=== PATIENT | female | born 1975 | race Caucasian/White ===

== ENCOUNTER 2018-08-01 09:52 | Inpatient (IN) | payer OTHER ==
[~2018-08-01] VITALS: Ht 157.5 cm; Wt 53.5 kg
--- NOTE | ~2018-08-01 | PROC ---
[address] [address] PROCEDURE REPORT Name: SHAUNA LAST Room: [address] IN .R.#: [id number] Admission: 08/01/18 Attend Phys: Prasanna Castaneda Discharge: 08/04/18 Date of : 77 Report #: [id number] THIS REPORT FOR: //name// For GI report, please see the Provation report in Perceptive 7 content. By: 0655Medical Records Staff SARAI /JULIA
--- NOTE | ~2018-08-01 | CON ---
[address] [address] CONSULTATION Name: BERHANESHAUNA Brady Room: [address] IN .R.#: [id number] Admission: 08/01/18 Attend Phys: Prasanna Castaneda Discharge: Date of : 77 Report #: [id number] THIS REPORT FOR: //name// CC: Padma Galan DATE OF SERVICE: 08/02/2018 REQUESTING PHYSICIAN: Topher Galan DO. REASON FOR CONSULT: Abdominal pain and evidence of colitis per CT. HISTORY OF PRESENT ILLNESS: This is a 42-year-old female with history of recurrent diverticulitis who had presented to hospital with abdominal pain, which is mainly in the left side and rectal bleeding. The patient reports that for the past few days, she has not been feeling good and has been complaining of left lower abdominal pain, which was radiating to the back. The patient also has history of peptic ulcer disease, Cabrera's and GERD. She reports that she takes PPI and her last upper scope was a couple of years ago. She denies any dysphagia, odynophagia, nausea and vomiting. PAST MEDICAL HISTORY: Significant for history of kidney stone, diverticulitis, GERD, peptic ulcer disease, migraines, Cabrera's esophagus, right and left leg surgery, adenectomy. ALLERGIES: No known drug allergy. MEDICATIONS: Please refer to MAR. SOCIAL HISTORY: The patient may occasionally have alcoholic beverage. She has history of tobaccoism, but quit a year ago. FAMILY HISTORY: Noncontributory. PHYSICAL EXAMINATION: VITAL SIGNS: Reveals blood pressure of 131/62, respirations 16, pulse 79, temperature 97.3. LUNGS: Clear. CARDIOVASCULAR: Regular. ABDOMEN: Soft, mildly tender to palpation in the left lower quadrant. Bowel sounds are positive. LABORATORY DATA: Reveal sodium of 143, potassium 3.1, BUN is 8, creatinine 0.5, glucose 130. Liver enzymes are within normal limit. WBC is 7.1, hemoglobin is 12.8 with platelet count of 269. There is also evidence of urinary tract infection as she has 6-15 [place] [address] CONSULTATION Name: SHAUNA LAST Room: [address] IN [facility]#: [id number] Admission: 08/01/18 Attend Phys: Prasanna Castaneda Discharge: Date of : 77 Report #: [id number] IMAGING: CT of abdomen and pelvis was obtained on admission. There is descending and sigmoid circumferential mural thickening. This is most probably secondary to colonic ischemia as the patient has been constipated. There is also mild distal colonic diverticulosis without any evidence of diverticulitis. ASSESSMENT AND PLAN: The patient with what appears to be colonic ischemia. We will continue antibiotics for another day or two. We will prep her for colonoscopy and perform colonoscopy with biopsies of the inflamed segment. I will discontinue IV steroids, which were started in ER as this is not inflammatory bowel disease. We will make further recommendation in reference to this after colonoscopy. The patient should continue PPI therapy for her history of Cabrera's and gastroesophageal reflux disease. By: 0929 1604Heather Briscoe MD /nt
[~2018-08-01 09:52] MED LIST: AMERGE2.5 MG; BACTRIM DS TAB1 EACH PO; CIPRO500 MG PO; DELTASONE20 MG PO; FLAGYL500 MG PO; FLEXERIL PO; MAXALT10 MG PO; NORCO 5-325 TA1 EAC1 PO; RIZATRIPTAN10 M1 PO; TRAMADOL 50 MG50 MG PO; TROKENDI XR200 MG PO; VENLAFAXINE HCL75 MG PO; VENTOLIN HFA 1818 GM INH; XANAX 0.5 MG0.5 MG PO; ZOFRAN ODT4 MG PO; ZPAK PO
[2018-08-01 09:56] VITALS: BP 140/65
[2018-08-01 10:22] LABS: URINE BILIRUBIN NEGATIVE (Negative); URINE BLOOD 1+ (Negative); URINE CLARITY CLEAR; URINE COLOR YELLOW; URINE GLUCOSE-RANDOM NEGATIVE (Negative); URINE KETONES NEGATIVE (Negative); URINE LEUKOCYTES-REFLEX 1+ (Negative); URINE NITRITE-REFLEX NEGATIVE (Negative); URINE PROTEIN NEGATIVE (Negative); URINE UROBILINOGEN 0.2 E.U./dl (0.2-1.0)
[2018-08-01 10:23] LABS: ABSOLUTE BASOPHILS 0.1 thou/uL (0.0-0.2); ABSOLUTE EOSINOPHILS 0.1 thou/uL (0.0-0.7); ABSOLUTE LYMPHOCYTES 1.5 thou/uL (0.8-5.3); ABSOLUTE MONOCYTES 0.5 thou/uL (0.0-1.2); ABSOLUTE NEUTROPHILS 4.2 thou/uL (1.6-8.1); BASOPHILS 1.3 %; HEMATOCRIT 43.1 % (37.0-47.0); HEMOGLOBIN 14.3 gm/dL (12.0-15.0); LYMPHOCYTES 24.3 %; MCH 29.6 pg (26.0-34.0); MCHC 33.2 g/dL (28.0-37.0); MCV 89.3 fL (80.0-100.0); MONOCYTES 7.3 %; MPV 8.9 fl. (7.2-11.1); NUCLEATED RBCS 0 /100WBC; PLATELET COUNT* 282 thou/uL (150-400); POLYS 66.1 %; RBC 4.82 mil/uL (4.20-5.00); RDW-CV 13.5 % (10.5-14.5); WBC 6.4 thou/uL (4.0-11.0)
[2018-08-01 10:30] LABS: BACTERIA-REFLEX 1-9 Few /HPF (None Seen); SQUAMOUS 4-10 Moderate /LPF (0-3); URINE RBC 3-10 Few /HPF (0-2); URINE WBC-REFLEX 6-15 Few /HPF (0-5)
[2018-08-01 10:31] LABS: CASTS None Seen /LPF (None Seen); CRYSTALS None Seen /LPF (None Seen); MUCUS 4-6 Moderate strn/LPF (None Seen)
[2018-08-01 10:42] LABS: ALKALINE PHOSPHATASE 57 U/L (46-116); ANION GAP 8 mmol/L (7-16); BUN 19 mg/dL (7-18); CALCIUM 8.9 mg/dL (8.5-10.1); CHLORIDE 104 mmol/L (98-107); CO2 27 mmol/L (21-32); CREATININE 0.6 mg/dL (0.6-1.3); GLUCOSE 90 mg/dL (70-99); LIPASE 225 U/L (73-393); SGOT 28 U/L (15-37); SGPT 32 U/L (30-65); SODIUM 139 mmol/L (136-145); TOTAL BILIRUBIN 0.3 mg/dL (<0.1-1.0); TOTAL PROTEIN 7.6 g/dL (6.4-8.2); TROPONIN-I LEVEL <0.06 ng/mL (<0.06)
[2018-08-01 13:29] VITALS: BP 116/65
--- NOTE | 2018-08-01 15:15 | EKG ---
[place] [address] ELECTROCARDIOGRAM REPORT Name: BERHANESHAUNA Room: [address] ADM IN .R.#: [id number] Admission: 08/01/18 Attend Phys: Prasanna Castaneda Discharge: Date of : 77 Report #: [id number] THIS REPORT FOR: //name// [facility] ED Test Date: 2018-08-01 Test Time: 10:34:40 Pat Name: SHAUNA LAST Department: Room: [facility] Gender: F Director Of Infection Control: KRISTIN : 1975 Requested By: Cyrus Cardenas Order Number: [id number] MD: Himanshu Sanabria Measurements Intervals [place] Rate: 69 P: 26 NH: 153 QRS: 30 QRSD: 89 T: 59 QT: 383 QTc: 411 Interpretive Statements Sinus rhythm No previous ECG available for comparison Electronically Signed On 08-01-2018 15:15:16 CDT by Himanshu Sanabria [email or web address] <ELECTRONICALLY SIGNED> By: Himanshu Sanabria MD, [facility] 08/01/18 1515 1034 1034 Himanshu Sanabria MD, FACC /EPI
[2018-08-01 19:40] VITALS: BP 109/67
[2018-08-02 05:11] LABS: HEMATOCRIT 38.3 % (37.0-47.0); HEMOGLOBIN 12.8 gm/dL (12.0-15.0); MCH 29.4 pg (26.0-34.0); MCHC 33.4 g/dL (28.0-37.0); MPV 9.2 fl. (7.2-11.1); RBC 4.35 mil/uL (4.20-5.00); RDW-CV 13.5 % (10.5-14.5); WBC 7.1 thou/uL (4.0-11.0)
[2018-08-02 05:49] LABS: ALBUMIN 3.5 g/dL (3.4-5.0); CALCIUM 8.7 mg/dL (8.5-10.1); CREATININE 0.5 mg/dL (0.6-1.3); MAGNESIUM 1.5 mg/dL (1.8-2.4); PHOSPHORUS* 2.9 mg/dL (2.5-4.9); POTASSIUM 3.1 mmol/L (3.5-5.1); TOTAL BILIRUBIN 0.5 mg/dL (<0.1-1.0); TOTAL PROTEIN 6.7 g/dL (6.4-8.2)
[2018-08-02 08:00] VITALS: BP 115/94
[2018-08-02 16:10] VITALS: BP 106/64
[2018-08-02 19:50] VITALS: BP 94/51
[2018-08-03 04:38] LABS: CREATININE 0.6 mg/dL (0.6-1.3); MAGNESIUM 2.1 mg/dL (1.8-2.4); POTASSIUM 3.6 mmol/L (3.5-5.1)
[2018-08-03 04:44] LABS: HEMATOCRIT 34.5 % (37.0-47.0); HEMOGLOBIN 11.7 gm/dL (12.0-15.0); MCH 29.7 pg (26.0-34.0); MCHC 33.7 g/dL (28.0-37.0); MCV 88.1 fL (80.0-100.0); MPV 9.2 fl. (7.2-11.1); RBC 3.92 mil/uL (4.20-5.00); RDW-CV 13.8 % (10.5-14.5); WBC 9.7 thou/uL (4.0-11.0)
[2018-08-03 08:00] VITALS: BP 117/71
[2018-08-03 16:00] VITALS: BP 102/61
[2018-08-03 17:34] LABS: ANION GAP 7 mmol/L (7-16); BUN 5 mg/dL (7-18); CALCIUM 8.4 mg/dL (8.5-10.1); CHLORIDE 108 mmol/L (98-107); CO2 27 mmol/L (21-32); CREATININE 0.7 mg/dL (0.6-1.3); GLUCOSE 111 mg/dL (70-99); MAGNESIUM 2.3 mg/dL (1.8-2.4); PHOSPHORUS* 2.6 mg/dL (2.5-4.9); POTASSIUM 3.2 mmol/L (3.5-5.1); SODIUM 142 mmol/L (136-145); TROPONIN-I LEVEL <0.06 ng/mL (<0.06)
[2018-08-03 19:40] VITALS: BP 102/64
[2018-08-04 05:06] LABS: HEMOGLOBIN 13.5 gm/dL (12.0-15.0); MCH 29.6 pg (26.0-34.0); MCHC 32.8 g/dL (28.0-37.0); MCV 90.1 fL (80.0-100.0); MPV 8.8 fl. (7.2-11.1); RBC 4.55 mil/uL (4.20-5.00); RDW-CV 14.1 % (10.5-14.5); WBC 6.5 thou/uL (4.0-11.0)
[2018-08-04 05:15] LABS: CALCIUM 8.8 mg/dL (8.5-10.1); CREATININE 0.6 mg/dL (0.6-1.3); MAGNESIUM 2.4 mg/dL (1.8-2.4); PHOSPHORUS* 3.5 mg/dL (2.5-4.9)
[2018-08-04 05:17] LABS: POTASSIUM 4.3 mmol/L (3.5-5.1)
[2018-08-04 08:00] VITALS: BP 116/46
[2018-08-04 13:18] VITALS: BP 116/46
[2018-08-04 13:31] VITALS: BP 110/62
[2018-08-04] MEDS ORDERED: MIRALAX17 GM PO (15:31)
--- NOTE | 2018-08-06 13:07 | PATH ---
[facility] [address] [place] [address] PATHOLOGY RPT PROCEDURE Name: SHAUNA MORENO Room: [address] IN M.R.#: [id number] Admission: 08/01/18 Date of : 77 Discharge: 08/04/18 Report #: [id number] Path Case #: [id number] [facility] Accession Number: [id number] . 01 Material submitted: . colon - SIGMOID BIOPSIES. Modifiers: sigmoid . 01 Clinical history: . None provided . 02 Diagnosis: Sigmoid biopsies: - Mild active colitis suggesting ischemic colitis, negative for granulomas, viral inclusions and dysplasia. See comment. . (TORSTEN:bean; 08/06/2018) QMS/08/06/2018 . 02 Comment: The biopsies reveal benign colonic mucosa, most of which is essentially normal and focal active inflammation is noted where there is some crypt atrophy and condensation of the lamina propria possibly with early fibrosis suggesting ischemic colitis. No definite basal lymphoplasmacytosis or crypt distortion is present to elevate a concern for inflammatory bowel disease. (TORSTEN:bean; 08/06/2018) . 02 Electronically signed: . Santino Leone MD, Pathologist NPI- [id number] . 01 Gross description: . Received in formalin labeled "Shauna Moreno, sigmoid biopsies," are 2 segments of macario soft tissue measuring 0.9 x 0.3 x 0.2 cm in aggregate dimensions and ranging from 0.4 to 0.5 cm in maximum dimension. The specimen is submitted entirely in cassette A1. (TSD; 08/04/2018) TOB/TOB . 02 Pathologist provided ICD-10: K52.9 . 02 CPT . 477341 Specimen Comment: A courtesy copy of this report has been sent to Specimen Comment: [phone], , . Specimen Comment: Report sent to ,DR ARANGO / DR JONES Performed at: [address] [place] [address] PATHOLOGY RPT PROCEDURE Name: SHAUNA MORENO Brady Room: [address] IN M.R.#: [id number] Admission: 08/01/18 Date of : 77 Discharge: 08/04/18 Report #: [id number] Path Case #: [id number] [facility] [address], [place], [place] [id number] MD Anthony Cohen MD Phone: [phone] Performed at: [address] [address] [address]ni Becerra, [place], [place] [id number] MD Santino Leone MD Phone: [phone]
== END 2018-08-04 16:09 | disposition home or self-care (01) | DRG 394 ==
LOC: M.ERS 09:52 → M.TBA-ER 11:53 → M.ORTHSURG 11:53
PROVIDERS: Family Medicine; Surgery; ADMIT Internal Medicine
PROC: 0DBN8ZX Excision of Sigmoid Colon, Via Natural or Artificial Opening Endoscopic, Diagnostic (ICD-10-PCS; principal; 2018-08-04)
DX: K55.039 Acute (reversible) ischemia of large intestine, extent unspecified (principal); N39.0 Urinary tract infection, site not specified; K57.30 Diverticulosis of large intestine without perforation or abscess without bleeding; G43.909 Migraine, unspecified, not intractable, without status migrainosus; K21.9 Gastro-esophageal reflux disease without esophagitis; E87.6 Hypokalemia; E83.42 Hypomagnesemia; K64.8 Other hemorrhoids; F41.9 Anxiety disorder, unspecified; M54.81 Occipital neuralgia; F17.210 Nicotine dependence, cigarettes, uncomplicated; Z87.442 Personal history of urinary calculi; Z87.11 Personal history of peptic ulcer disease; Z79.899 Other long term (current) drug therapy